=== PATIENT | female | born 1940 | race Hispanic/Latino ===

== ENCOUNTER → 2021-03-19 | Outpatient (CLI) | payer OTHER, MEDICARE | END | disposition home or self-care (01) | LOC: OIH 13:02 | PROVIDERS: ATTEND Internal Medicine | DX: M16.0 Bilateral primary osteoarthritis of hip (principal) | CPT/HCPCS: 73521 ==

== ENCOUNTER → 2023-12-27 | Outpatient (CLI) | payer OTHER, MEDICARE ==
[~2023-12-27] MED LIST: GADOTERATE MEGLUMINE 10 MMOL/20 ML VIAL IV ONE
== END | disposition home or self-care (01) ==
LOC: RAH 07:18
PROVIDERS: ATTEND Nurse Practitioner Family
DX: C49.6 Malignant neoplasm of connective and soft tissue of trunk, unspecified (principal); R19.09 Other intra-abdominal and pelvic swelling, mass and lump; M41.80 Other forms of scoliosis, site unspecified
CPT/HCPCS: 74183; 72197; A9575